=== PATIENT | female | born 1935 | race Caucasian/White ===

== ENCOUNTER 2019-04-22 15:44 | Emergency (ER) | payer MEDICARE, OTHER ==
[~2019-04-22] VITALS: Ht 142 cm; Wt 82.0 kg
[~2019-04-22 15:44] MED LIST: ACHYD1T PO; CA C1TAB75 PO; CTLP20T PO; CYCL10TA9 PO; HYDR-3583 PO; MULT-974 PO; OMEP-10 PO; PAIN MEDICINE; SIMV40TA4 PO; SIMV80TA3 PO; TRAM50TA2 PO
--- NOTE | 2019-04-22 16:27 | NUR ---
EFRAIN STATES HE TOOK PT'S EARRINGS OUT AND PUT THEM INTO A CONTAINER AND GAVE THEM TO HER DAUGHTER.
--- NOTE | 2019-04-22 16:53 | Diagnostic Imaging Report ---
PROCEDURE: CT head and CT cervical spine without contrast. TECHNIQUE: Multiple contiguous axial images were obtained through the brain and cervical spine without the use of intravenous contrast. Sagittal and coronal reformations through the cervical spine were then performed. Auto Exposure Controls were utilized during the CT exam to meet ALARA standards for radiation dose reduction. INDICATION: Fall with frontal scalp hematoma. COMPARISON: No prior studies are available for comparison. CT HEAD: There is soft tissue swelling in the frontal scalp. The ventricles and sulci are appropriate for the patient's age. No sulcal effacement or midline shift is identified. No acute intra-axial or extra-axial hemorrhage is detected. Cisterns are patent. Visualized paranasal sinuses are clear. No calvarial fracture is seen. IMPRESSION: Frontal scalp hematoma. No acute intracranial process is detected. CT CERVICAL SPINE: Curvature of the cervical spine is normal. Minimal anterolisthesis of C3 on C4 and C4 on C5 is noted. There is minimal retrolisthesis of C5 on C6. There is significant degenerative disc disease at the C5-6 and C6-7 levels with disc space narrowing and marginal spurring. Multilevel facet arthropathy is noted, particularly on the left side. No fractures are identified. Prevertebral tissues are within normal limits. Odontoid is intact. IMPRESSION: Cervical spondylosis. No acute bony abnormality is detected. Dictated by: Dictated on workstation # [id number]
--- NOTE | 2019-04-22 16:57 | ED Trauma-Multisystem ---
General Chief Complaint: Trauma-Non Activation Stated Complaint: FALL Nursing Triage Note: TO TRIAGE VIA WC. FAMILY AND PT STATES SHE TRIPPED AND FELL FALLING FACE FORWARD ONTO THE GROUND. DENIES LOC OR NECK PAIN. DENIES BEING ON BLOOD THINNERS. Source of Information: Patient Exam Limitations: No Limitations History of Present Illness Date Seen by Provider: Apr 22, 2019 Time Seen by Provider: 16:00 Allergies and Home Medications Allergies Coded Allergies: No Known Drug Allergies (Unverified , 04/30/13) Home Medications Ca Carbonate/Vitamin D3/Vit K 1 Each Tab.chew, 1 TAB PO DAILY, (Reported) Citalopram Hydrobromide 20 Mg Tablet, 20 MG PO DAILY, (Reported) Cyclobenzaprine Hcl 10 Mg Tablet, 10 MG PO Q8HR PRN, (Reported) Hydrocodone Bit/Acetaminophen 1 Ea Tab, 1-2 TAB PO Q4H PRN, (Reported) Multivitamin 1 Each Tablet, 1 TAB PO DAILY, (Reported) Omeprazole 20 Mg Capsule.dr, 20 MG PO DAILY, (Reported) Simvastatin 80 Mg Tablet, 80 MG PO HS, (Reported) Tramadol Hcl 50 Mg Tablet, 50-100 MG PO Q6H PRN, (Reported) TAKES 1 OR 2 (50MG) TABLETS NEEDED FOR PAIN Past Nznxhhl-Jtiyjj-Vnmqpx Hx Patient Social History Alcohol Use: Denies Use Recreational Drug Use: No Smoking Status: Current Everyday Smoker Recent Foreign Travel: No Contact w/Someone Who Travel: No Recent Infectious Disease Expo: No Immunizations Up To Date Tetanus Booster (TDap): More than 5yrs PED Vaccines UTD: Yes Date of Influenza Vaccine: May 13, 2013 Past Medical History Surgeries: No Respiratory: No Cardiac: Yes Neurological: No Reproductive Disorders: No Gastrointestinal: No Musculoskeletal: Yes Degenerate Disk Disease, Arthritis Endocrine: No Cancer: No Psychosocial: Yes Anxiety Integumentary: Yes Physical Exam Vital Signs Vital Signs - First Documented 04/22/19 15:45 Temp 36.1 Pulse 82 Resp 16 B/P (MAP) 131/71 (91) Pulse Ox 93 O2 Delivery Room Air Height, Weight, BMI Height: '" Weight: 159lbs. 0.0oz. 72.661912vv; 40.00 BMI Method: Progress/Results/Core Measures Results/Orders My Orders Orders - EFRAIN MEHTA Ct Head/Cervical Spine Wo (04/22/19 16:07) Acetaminophen Tablet (Tylenol Tablet) (04/22/19 17:00) Vital Signs/I&O 04/22/19 15:45 Temp 36.1 Pulse 82 Resp 16 B/P (MAP) 131/71 (91) Pulse Ox 93 O2 Delivery Room Air Blood Pressure Mean: 91 Diagnostic Imaging Diagonstic Imaging: CT Plain Films/CT/US/NM/MRI: c-spine, head Comments NAME: HELIO RUSSO [facility] REC#: [id number] PT STATUS: REG ER : 1935 PHYSICIAN: EFRAIN MEHTA ADMIT DATE: 04/22/19/ER Draft Date of Exam:04/22/19 CT HEAD/CERVICAL SPINE WO PROCEDURE: CT head and CT cervical spine without contrast. TECHNIQUE: Multiple contiguous axial images were obtained through the brain and cervical spine without the use of intravenous contrast. Sagittal and coronal reformations through the cervical spine were then performed. Auto Exposure Controls were utilized during the CT exam to meet ALARA standards for radiation dose reduction. INDICATION: Fall with frontal scalp hematoma. COMPARISON: No prior studies are available for comparison. CT HEAD: There is soft tissue swelling in the frontal scalp. The ventricles and sulci are appropriate for the patient's age. No sulcal effacement or midline shift is identified. No acute intra-axial or extra-axial hemorrhage is detected. Cisterns are patent. Visualized paranasal sinuses are clear. No calvarial fracture is seen. IMPRESSION: Frontal scalp hematoma. No acute intracranial process is detected. CT CERVICAL SPINE: Curvature of the cervical spine is normal. Minimal anterolisthesis of C3 on C4 and C4 on C5 is noted. There is minimal retrolisthesis of C5 on C6. There is significant degenerative disc disease at the C5-6 and C6-7 levels with disc space narrowing and marginal spurring. Multilevel facet arthropathy is noted, particularly on the left side. No fractures are identified. Prevertebral tissues are within normal limits. Odontoid is intact. IMPRESSION: Cervical spondylosis. No acute bony abnormality is detected. Dictated on workstation # [id number] Dict: 04/22/19 1649 Trans: 04/22/19 1656 [facility] [id number] Interpreted by: DARSHAN LUDWIG MD Electronically signed by: Reviewed: Reviewed by Me Departure Impression Primary Impression: Minor head injury Additional Impression: Laceration Disposition: 01 HOME, SELF-CARE Condition: Stable/Unchanged Departure-Patient Inst. Decision time for Depature: 17:07 Referrals: SELFKITTY MD (PCP/Family) Primary Care Physician Patient Instructions: Minor Head Injury, Laceration Repair With Glue (DC) Add. Discharge Instructions: Watch for signs of infection such as increased redness, swelling, drainage, pain. You may use Tylenol as directed by the bottle for pain relief. Return back to the emergency room for worsening symptoms, change in level of consciousness, or any other concerns as needed. Follow-up with primary care as needed. All discharge instructions reviewed with patient and/or family. Voiced understanding. EFRAIN MEHTA Apr 22, 2019 16:56
[2019-04-22] MEDS ORDERED: ACETAMINOPHEN 500 MG TAB (TYLENOL) PO PRN (17:00)
[2019-04-22 17:14] VITALS: BP 148/70
== END 2019-04-22 17:14 | disposition home or self-care (01) ==
LOC: EDUNIT# 15:44 → ER 15:45
DX: S09.90XA Unspecified injury of head, initial encounter (principal); S01.91XA Laceration without foreign body of unspecified part of head, initial encounter; F17.200 Nicotine dependence, unspecified, uncomplicated; F41.9 Anxiety disorder, unspecified; W01.198A Fall on same level from slipping, tripping and stumbling with subsequent striking against other object, initial encounter
CPT/HCPCS: 12011; 70450; 72125

== ENCOUNTER 2022-03-31 08:30 | Emergency (ER) | payer MEDICARE, OTHER ==
[~2022-03-31] VITALS: Ht 152.4 cm; Wt 68.0 kg
--- NOTE | 2022-03-31 08:55 | ED Fall/Injury ---
General Chief Complaint: Trauma-Non Activation Stated Complaint: FALL; HEAD LAC Source: patient Exam Limitations: no limitations History of Present Illness Date Seen by Provider: Mar 31, 2022 Time Seen by Provider: 08:34 Initial Comments 87-year-old female with past medical history of hypertension, hyperlipidemia, and stage IV endometrial cancer coming in after she tripped and fell around 530 this morning hitting her head on the nightstand. She endorses having a couple lacerations on her forehead. Did not pass out remembers all events. Is having a moderate, constant, throbbing headache which was better with the hydrocodone she took earlier today. Otherwise denies any neck pain, back pain, extremity pain, chest pain, shortness of breath, abdominal pain, vomiting, diarrhea, weakness, numbness, or any other concerns. Last tetanus shot was 3 years ago. Allergies and Home Medications Allergies Coded Allergies: No Known Drug Allergies (Unverified , 04/30/13) Patient Home Medication List Home Medication List Reviewed: Yes Ca Carbonate/Vitamin D3/Vit K (Calcium + D Soft Chewable Tab) 1 Each Tab.chew, 1 TAB PO DAILY, (Reported) Entered as Reported by: JANIS GELLER on 04/30/13 1050 Citalopram Hydrobromide (Celexa) 20 Mg Tablet, 20 MG PO DAILY, (Reported) Entered as Reported by: WALTER KATHLEEN on 05/12/13 0656 Cyclobenzaprine Hcl (Cyclobenzaprine Hcl) 10 Mg Tablet, 10 MG PO Q8HR PRN, (Reported) Entered as Reported by: BRENDA JOVEL on 05/13/13 0434 Hydrocodone Bit/Acetaminophen (Lortab 10 Mg) 1 Ea Tab, 1-2 TAB PO Q4H PRN, (Reported) Entered as Reported by: BRENDA JOVEL on 05/13/13 0434 Multivitamin (Multi Vitamin Daily) 1 Each Tablet, 1 TAB PO DAILY, (Reported) Entered as Reported by: JANIS GELLER on 04/30/13 1050 Omeprazole (Prilosec 20 Mg) 20 Mg Capsule.dr, 20 MG PO DAILY, (Reported) Entered as Reported by: ABY ELDER on 05/12/13 1118 Simvastatin (Simvastatin) 80 Mg Tablet, 80 MG PO HS, (Reported) Entered as Reported by: ABY ELDER on 05/12/13 1119 Tramadol Hcl (Tramadol Hcl) 50 Mg Tablet, 50-100 MG PO Q6H PRN, (Reported) Entered as Reported by: ABY ELDER on 05/12/13 1119 Review of Systems Review of Systems Constitutional: No fever Eyes: Denies Blurred Vision Ears, Nose, Mouth, Throat: no symptoms reported Respiratory: no symptoms reported Cardiovascular: no symptoms reported Gastrointestinal: no symptoms reported Genitourinary: no symptoms reported Musculoskeletal: no symptoms reported Skin: see HPI Psychiatric/Neurological: No Symptoms Reported All Other Systems Reviewed Negative Unless Noted: Yes Past Vszrtep-Uzcajj-Mozjyo Hx Immunizations Up To Date Tetanus Booster (TDap): More than 5yrs PED Vaccines UTD: Yes Past Medical History Surgeries: No Respiratory: No Cardiac: Yes Neurological: No Reproductive Disorders: No Gastrointestinal: No Musculoskeletal: Yes Degenerate Disk Disease, Arthritis Endocrine: No Cancer: No Psychosocial: Yes Anxiety Integumentary: Yes Physical Exam Vital Signs Vital Signs - First Documented 03/31/22 08:40 Temp 36.8 Pulse 88 Resp 18 B/P (MAP) 145/69 (94) Pulse Ox 97 O2 Delivery Room Air Capillary Refill : Height, Weight, BMI Height: '" Weight: 159lbs. 0.0oz. 72.559298cu; 40.00 BMI Method: General Appearance: WD/WN, no apparent distress HEENT: PERRL/EOMI, normal ENT inspection, pharynx normal, other (2 cm lacera tion to the left middle forehead and 2 and half centimeter laceration to the right mid forehead along the hairline) Neck: non-tender, full range of motion, supple, normal inspection Cardiovascular: normal peripheral pulses, regular rate, rhythm, no edema, no murmur Respiratory: chest non-tender, lungs clear, normal breath sounds, no respiratory distress, no accessory muscle use Gastrointestinal: normal bowel sounds, non tender, soft; No distended, No guarding, No rebound Extremities: normal range of motion, non-tender, normal inspection, no pedal edema, no calf tenderness, normal capillary refill 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, no motor/sensory deficits, alert, normal mood/affect, oriented x 3 Skin: normal color, warm/dry Lymphatic: no adenopathy Bren Coma Score Best Eye Response: (4) Open Spontaneously Best Verbal Response: (5) Oriented Best Motor Response: (6) Obeys Commands Procedures/Interventions Wound Location: Face Other Wound Location forehead lac #1 left forehead that was 2cm with 5 stitches that were 5-0 fast absorbing gut lac #2 on right forehead along hairline that was 2.5cm with 6 stitches that were 6-0 prolene Wound's Depth, Shape: sub Q Wound Explored: clean Irrigated w/ Saline (ccs): 500 Betadine Prep?: No Anesthesia: Lidocaine w/ Epi Volume Anesthetic (ccs): 6 Progress Patient tolerated well Progress/Results/Core Measures Results/Orders My Orders Orders - RAI RAMÍREZ MD Hydrocodone/Apap 5/325 Tablet (Lortab 5 (03/31/22 09:00) Ct Head/Cervical Spine Wo (03/31/22 08:51) Lidocaine/Epi 2% 1:100,000 (Xylocaine/Ep (03/31/22 09:00) Ondansetron Oral Dissolve Tab (Zofran (03/31/22 09:10) Lidocaine/Epi Mpf 2% 1:200,000 (Xylocain (03/31/22 09:18) Medications Given in ED Current Medications Medications Dose Ordered Sig/Garry Route Start Time Stop Time Status Last Admin Dose Admin Acetaminophen/ Hydrocodone Bitart 1 ea ONCE ONCE PO 03/31/22 09:00 03/31/22 09:01 DC 03/31/22 09:03 1 EA Vital Signs/I&O 03/31/22 08:40 Temp 36.8 Pulse 88 Resp 18 B/P (MAP) 145/69 (94) Pulse Ox 97 O2 Delivery Room Air Progress Progress Note : Progress Note 87-year-old female with above history coming in after mechanical fall tripping several hours before arrival. ABCs were intact and vitals were stable on presentation. Physical exam with 2 lacerations to her forehead. Tetanus is up-to-date. She was given hydrocodone for pain. CT head and cervical spine negative for acute abnormalities. She has no tenderness anywhere else and no other imaging obtained. The wounds were closed after being cleaned. The patient should come back in roughly 10 days for the laceration on the right side of her forehead. The left side of her forehead is absorbable stitches. Diagnostic Imaging Diagonstic Imaging: CT (head and cspine) Comments [facility] [place] NAME: HELIO RUSSO [facility] REC#: [id number] PT STATUS: REG ER : 1935 PHYSICIAN: RAI RAMÍREZ MD ADMIT DATE: 03/31/22/ER FS Draft Date of Exam:03/31/22 CT HEAD/CERVICAL SPINE WO PROCEDURE: CT head and CT cervical spine without contrast. TECHNIQUE: Multiple contiguous axial images were obtained through the brain and cervical spine without the use of intravenous contrast. Sagittal and coronal reformations through the cervical spine were then performed. Auto Exposure Controls were utilized during the CT exam to meet ALARA standards for radiation dose reduction. INDICATION: Fall, scalp lacerations. Head: There is no intracranial hemorrhage, hydrocephalus, cerebral edema, mass, mass effect nor evidence for an elevation of the intracranial pressures. Head CT unchanged from exam 04/22/2019. No findings of elevated intracranial pressures. No focal or generalized cerebral edema. No calvarial fracture deformity. No pneumocephalus. No hemo-sinus. Scleral banding noted chronic. No acute or suspect orbital pathology. The intracranial atherosclerotic vascular calcifications chronic. There is some left frontal supraorbital scalp irregularities. Cervical spine: Chronic degenerative changes greatest at C5-C6 redemonstrated unchanged from comparison. There is stable grade 1 degenerative anterolisthesis C3 on C4 and C4 on C5 unchanged. No cervical fracture. No facet joint dislocation. No paraspinal hemorrhage. No prevertebral thickening. Craniocervical relationship and central skull base intact. IMPRESSION: CT head: Stable chronic senescent changes as well as left frontal scalp injury but no fracture or intracerebral hemorrhage. CT cervical spine shows chronic degenerative changes and multilevel grade 1 degenerative listheses unchanged from prior with no fracture or dislocation. Dictated on workstation # [id number] Dict: 03/31/22918 Trans: 03/31/22928 [id number] Interpreted by: KAELA CIFUENTES Electronically signed by: Departure Impression Primary Impression: Forehead laceration Qualified Codes: S01.81XA - Laceration without foreign body of other part of head, initial encounter Additional Impression: Fall Qualified Codes: W19.XXXA - Unspecified fall, initial encounter Disposition: 01 HOME, SELF-CARE Condition: Stable Departure-Patient Inst. Decision time for Depature: 09:55 Referrals: SELF,KITTY ELLIOTT (PCP) Primary Care Physician Patient Instructions: Laceration Repair With Stitches ED Add. Discharge Instructions: The stitches on your right side of your forehead need to come out in 10 days, you can come back to the ER for that. The left-sided forehead will absorb by themselves. After couple days you can allow them to get briefly wet, but pat them dry. Do not scrub them, or allow them to be submerged in any type of water. You do not need to place any ointments on them until the stitches are out. If you have any redness spreading down your face, pus coming out of the wound, or new fever then I would want you evaluated by your doctor or come back to the ER. RAI RAMÍREZ MD Mar 31, 2022 08:55
[2022-03-31] MEDS ORDERED: LIDOCAINE/EPI 2% 1:100,00 (XYLOCAINE) 20 ML VIAL INJ ONE (09:00)
[2022-03-31] MEDS ORDERED: HYDROcodone/APAP 5 MG/325 MG (LORTAB) TAB PO ONE (09:00)
[2022-03-31] MEDS ORDERED: ONDANSETRON 4 MG (ZOFRAN) ORAL DISSOLVE TAB PO STA (09:10)
[2022-03-31] MEDS ORDERED: LIDOCAINE/EPI 2% 1:200,00 (XYLOCAINE) 20 ML VIAL ONE (09:18)
--- NOTE | 2022-03-31 09:29 | Diagnostic Imaging Report ---
PROCEDURE: CT head and CT cervical spine without contrast. TECHNIQUE: Multiple contiguous axial images were obtained through the brain and cervical spine without the use of intravenous contrast. Sagittal and coronal reformations through the cervical spine were then performed. Auto Exposure Controls were utilized during the CT exam to meet ALARA standards for radiation dose reduction. INDICATION: Fall, scalp lacerations. Head: There is no intracranial hemorrhage, hydrocephalus, cerebral edema, mass, mass effect nor evidence for an elevation of the intracranial pressures. Head CT unchanged from exam 04/22/2019. No findings of elevated intracranial pressures. No focal or generalized cerebral edema. No calvarial fracture deformity. No pneumocephalus. No hemo-sinus. Scleral banding noted chronic. No acute or suspect orbital pathology. The intracranial atherosclerotic vascular calcifications chronic. There is some left frontal supraorbital scalp irregularities. Cervical spine: Chronic degenerative changes greatest at C5-C6 redemonstrated unchanged from comparison. There is stable grade 1 degenerative anterolisthesis C3 on C4 and C4 on C5 unchanged. No cervical fracture. No facet joint dislocation. No paraspinal hemorrhage. No prevertebral thickening. Craniocervical relationship and central skull base intact. IMPRESSION: CT head: Stable chronic senescent changes as well as left frontal scalp injury but no fracture or intracerebral hemorrhage. CT cervical spine shows chronic degenerative changes and multilevel grade 1 degenerative listheses unchanged from prior with no fracture or dislocation. Dictated by: Dictated on workstation # [id number]
[2022-03-31 10:20] VITALS: BP 125/83
== END 2022-03-31 10:20 | disposition home or self-care (01) ==
LOC: EDUNIT# 08:30 → ER FS 08:31
DX: S01.81XA Laceration without foreign body of other part of head, initial encounter (principal); W01.198A Fall on same level from slipping, tripping and stumbling with subsequent striking against other object, initial encounter
CPT/HCPCS: 12013; 70450; 72125

== ENCOUNTER 2022-04-10 11:51 | Emergency (ER) | payer MEDICARE, OTHER | END 2022-04-10 12:05 | disposition left against medical advice (07) | LOC: EDUNIT# 11:51 → ER FS 11:52 | DX: Z48.02 Encounter for removal of sutures (principal) ==

== ENCOUNTER 2022-07-17 13:42 | Emergency (ER) | payer MEDICARE, OTHER ==
[2022-07-17] MEDS ORDERED: ONDANSETRON 4 MG (ZOFRAN) ORAL DISSOLVE TAB PO STA (14:24)
--- NOTE | 2022-07-17 14:42 | ED General ---
General Chief Complaint: General Problems/Pain Stated Complaint: GEN WEAKNESS; N/V Nursing Triage Note: Patient presents to the ED with c/o generalized weakness, nausea, and vomiting. Family report patient has been getting progressively weak for the past 3 days. Reports 1 episode of nausea and vomiting this morning. Source of Information: Patient Exam Limitations: No Limitations History of Present Illness Date Seen by Provider: Jul 17, 2022 Time Seen by Provider: 13:45 Initial Comments Patient is an 87-year-old female with stage IV endometrial cancer presents with generalized weakness with nausea and vomiting today with recent diagnosis of lower urinary tract infection. Patient was evaluated by her PCP 4 days ago and had blood work and a UA performed. She was prescribed nitrofurantoin today but family has not had a chance to fill prescription. Patient vomited once prior to ED arrival did not take her morning medications. No other symptoms or complaints. Historian is the patient and patient's family members. Timing/Duration: 2-3 Days Severity: Mild Modifying Factors: improves with Other Associated Systoms: Other Allergies and Home Medications Allergies Coded Allergies: No Known Drug Allergies (Unverified , 04/30/13) Patient Home Medication List Home Medication List Reviewed: Yes Ca Carbonate/Vitamin D3/Vit K (Calcium + D Soft Chewable Tab) 1 Each Tab.chew, 1 TAB PO DAILY, (Reported) Entered as Reported by: JANIS GELLER on 04/30/13 1050 Citalopram Hydrobromide (Celexa) 20 Mg Tablet, 20 MG PO DAILY, (Reported) Entered as Reported by: WALTER KATHLEEN on 05/12/13 0656 Cyclobenzaprine Hcl (Cyclobenzaprine Hcl) 10 Mg Tablet, 10 MG PO Q8HR PRN, (Reported) Entered as Reported by: BRENDA JOVEL on 05/13/13 0434 Hydrocodone Bit/Acetaminophen (Lortab 10 Mg) 1 Ea Tab, 1-2 TAB PO Q4H PRN, (Reported) Entered as Reported by: BRENDA JOVEL on 05/13/13 0434 Multivitamin (Multi Vitamin Daily) 1 Each Tablet, 1 TAB PO DAILY, (Reported) Entered as Reported by: JANIS GELLER on 04/30/13 1050 Omeprazole (Prilosec 20 Mg) 20 Mg Capsule.dr, 20 MG PO DAILY, (Reported) Entered as Reported by: ABY ELDER on 05/12/13 1118 Simvastatin (Simvastatin) 80 Mg Tablet, 80 MG PO HS, (Reported) Entered as Reported by: ABY ELDER on 05/12/13 1119 Tramadol Hcl (Tramadol Hcl) 50 Mg Tablet, 50-100 MG PO Q6H PRN, (Reported) Entered as Reported by: ABY ELDER on 05/12/13 1119 Review of Systems Review of Systems Constitutional: see HPI EENTM: see HPI Respiratory: see HPI Cardiovascular: see HPI Gastrointestinal: see HPI Genitourinary: see HPI : No Musculoskeletal: see HPI Skin: see HPI Psychiatric/Neurological: See HPI Hematologic/Lymphatic: See HPI All Other Systems Reviewed Negative Unless Noted: No Past Xfumsns-Acvcyj-Lotccj Hx Patient Social History Tobacco Use?: Yes Tobacco type used: Cigarettes Smoking Status: Current Everyday Smoker Substance use?: No Alcohol Use?: No Pt feels they are or have been: No Immunizations Up To Date Tetanus Booster (TDap): More than 5yrs PED Vaccines UTD: Yes Past Medical History Surgery/Hospitalization HX: stage iv endometrial cancer; Chronic back pain Surgeries: No Respiratory: No Cardiac: Yes Neurological: No Reproductive Disorders: No Gastrointestinal: No Musculoskeletal: Yes Degenerate Disk Disease, Arthritis Endocrine: No Cancer: No Psychosocial: Yes Anxiety Integumentary: Yes Physical Exam Vital Signs Vital Signs - First Documented 07/17/22 13:53 Temp 36.5 Pulse 65 Resp 20 B/P (MAP) 180/86 (117) Pulse Ox 96 O2 Delivery Room Air Capillary Refill : Less Than 3 Seconds Height, Weight, BMI Height: '" Weight: 159lbs. 0.0oz. 72.725180th; 29.00 BMI Method: General Appearance: No Apparent Distress, WD/WN Eyes: Bilateral Eye Normal Inspection, Bilateral Eye PERRL, Bilateral Eye EOMI HEENT: PERRL/EOMI, Normal ENT Inspection, Pharynx Normal Neck: Full Range of Motion, Normal Inspection, Non Tender Respiratory: Lungs Clear Cardiovascular: Regular Rate, Rhythm, No Edema, No JVD, No Murmur Gastrointestinal: No Pulsatile Mass, Soft Back: Normal Inspection Neurologic/Psychiatric: Alert, Oriented x3 Focused Exam Sepsis Stage: Ruled Out Progress/Results/Core Measures Suspected Sepsis SIRS Temperature: Pulse: 65 Respiratory Rate: 20 Laboratory Tests 12/12/22 15:11: White Blood Count 7.6 Blood Pressure 180 /86 Mean: 117 Laboratory Tests 07/17/22 15:11: Creatinine 1.28, Platelet Count 309, Total Bilirubin 0.7 Results/Orders Lab Results Laboratory Tests Test 07/17/22 15:11 07/17/22 15:22 07/17/22 16:14 Range/Units White Blood Count 7.6 4.3-11.0 10^3/uL Red Blood Count 4.75 3.80-5.11 10^6/uL Hemoglobin 12.1 11.5-16.0 g/dL Hematocrit 38 35-52 % Mean Corpuscular Volume 81 80-99 fL Mean Corpuscular Hemoglobin 26 25-34 pg Mean Corpuscular Hemoglobin Concent 32 32-36 g/dL Red Cell Distribution Width 18.2 H 10.0-14.5 % Platelet Count 309 130-400 10^3/uL Mean Platelet Volume 10.9 9.0-12.2 fL Neutrophils (%) (Auto) 80 H 42-75 % Lymphocytes (%) (Auto) 13 12-44 % Monocytes (%) (Auto) 6 0-12 % Eosinophils (%) (Auto) 1 0-10 % Basophils (%) (Auto) 0 0-10 % Neutrophils # (Auto) 6.1 1.8-7.8 X 10^3 Lymphocytes # (Auto) 1.0 1.0-4.0 X 10^3 Monocytes # (Auto) 0.4 0.0-1.0 X 10^3 Eosinophils # (Auto) 0.1 0.0-0.3 10^3/uL Basophils # (Auto) 0.0 0.0-0.1 10^3/uL Sodium Level 139 135-145 MMOL/L Potassium Level 3.9 3.6-5.0 MMOL/L Chloride Level 102 98-107 MMOL/L Carbon Dioxide Level 25 21-32 MMOL/L Anion Gap 12 5-14 MMOL/L Blood Urea Nitrogen 14 7-18 MG/DL Creatinine 1.28 0.60-1.30 MG/DL Estimat Glomerular Filtration Rate 41 BUN/Creatinine Ratio 11 Glucose Level 101 70-105 MG/DL Calcium Level 9.9 8.5-10.1 MG/DL Corrected Calcium 9.8 8.5-10.1 MG/DL Total Bilirubin 0.7 0.1-1.0 MG/DL Aspartate Amino Transf (AST/SGOT) 17 5-34 U/L Alanine Aminotransferase (ALT/SGPT) 10 0-55 U/L Alkaline Phosphatase 101 40-136 U/L Troponin I < 0.30 <0.30 NG/ML Total Protein 7.6 6.4-8.2 GM/DL Albumin 4.1 3.2-4.5 GM/DL Influenza Type A (RT-PCR) Not Detected Not Detecte Influenza Type B (RT-PCR) Not Detected Not Detecte SARS-CoV-2 RNA (RT-PCR) Not Detected Not Detecte My Orders Orders - JUSTIN JAVED DO Ondansetron Oral Dissolve Tab (Zofran (07/17/22 14:24) Orthostatic Vital Signs (Adult (07/17/22 14:43) Hydrocodone/Apap 5/325 Tablet (Lortab 5 (07/17/22 15:15) Cbc With Automated Diff (07/17/22 15:09) Comprehensive Metabolic Panel (07/17/22 15:09) Troponin I Fs (07/17/22 15:09) Ua Culture If Indicated (07/17/22 15:09) Ns Iv 1000 Ml (Sodium Chloride 0.9%) (07/17/22 15:15) Ceftriaxone 1 Gm Pre-Mix (Rocephin 1 Gm (07/17/22 15:15) Covid 19 Inhouse Test (07/17/22 15:10) Influenza A And B By Pcr (07/17/22 15:10) Isolation Central Supply Req (07/17/22 15:10) Medications Given in ED Current Medications Medications Dose Ordered Sig/Garry Route Start Time Stop Time Status Last Admin Dose Admin Acetaminophen/ Hydrocodone Bitart 1 ea ONCE ONCE PO 07/17/22 15:15 07/17/22 15:16 DC 07/17/22 15:10 1 EA Ceftriaxone Sodium/Dextrose 50 ml @ 100 mls/hr ONCE ONCE IV 07/17/22 15:15 07/17/22 15:44 DC 07/17/22 15:22 100 MLS/HR Vital Signs/I&O 07/17/22 07/17/22 13:53 15:19 Temp 36.5 Pulse 65 103 92 83 Resp 20 B/P (MAP) 180/86 (117) 174/73 (106) 169/95 (119) 136/71 (92) Pulse Ox 96 O2 Delivery Room Air Capillary Refill : Less Than 3 Seconds Blood Pressure Mean: 117 Departure Communication (Admissions) Patient with generalized weakness with recent falls. She denies headache, neck pain, blurred vision, chest pain palpitations, shortness of breath. Patient does report nausea with eating. She reports intermittent low back pain, currently denies abdominal pain, low flank pain. No fever chills or sweats. No other acute symptoms or complaints. Orthostatic positive. IV fluids, IV antibiotics given. Patient remains a high fall risk while on anticoagulation therapy I discussed this in detail with the patient's family including recommendation for alf placement and/or hospital admission. Family members voiced understanding of risk of fall and injury but preferred to take patient home in keeping with her wishes. Home safety precautions discussed. Return precautions reviewed. Patient's family verbalizes understanding agreement discharge instructions prior to departure. Impression Primary Impression: Generalized weakness Additional Impressions: Nausea and vomiting Urinary tract infection Disposition: 01 HOME, SELF-CARE Condition: Improved Departure-Patient Inst. Decision time for Depature: 16:27 Referrals: KITTY DIANE MD (PCP) Primary Care Physician Patient Instructions: Urinary Tract Infection, Adult (DC), Generalized Weakness, Nausea and Vomiting, Adult Add. Discharge Instructions: Diya was evaluated in the emergency department with generalized weakness nausea and vomiting and frequent falls. The exact cause of your symptoms has not been determined. Please increase fluids, take nausea medication as directed and encourage caloric intake. Continue walker use with assist and follow-up with her PCP for further management. Return to the ED if new or concerning symptoms. All discharge instructions reviewed with patient and/or family. Voiced understanding. Scripts Ondansetron (Ondansetron Odt) 4 Mg Tab.rapdis 4 MG SL Q4H PRN for NAUSEA/VOMITING, #10 TAB Prov: JUSTIN JAVED DO 07/17/22 JSUTIN JVAED DO Jul 17, 2022 14:42
[2022-07-17] MEDS ORDERED: cefTRIAXone 1 GM PRE-MIX 50 ML IV ONE (15:15)
[2022-07-17] MEDS ORDERED: HYDROcodone/APAP 5 MG/325 MG (LORTAB) TAB PO ONE (15:15)
[2022-07-17] MEDS ORDERED: NS IV 1000 ML 1,000 ML IV SCH (15:15)
[2022-07-17 15:19] VITALS: BP_SYST 136; BP_SYST 169; BP_SYST 174; BP_DIAS 71; BP_DIAS 73; BP_DIAS 95
[2022-07-17 15:38] LABS: HEMOGLOBIN 12.1 g/dL (11.5-16.0); WHITE BLOOD COUNT 7.6 10^3/uL (4.3-11.0)
[2022-07-17 15:39] LABS: BASOPHILS % (AUTO) 0 % (0-10); EOSINOPHILS % (AUTO) 1 % (0-10); HEMATOCRIT 38 % (35-52); LYMPHOCYTES % (AUTO) 13 % (12-44); MEAN CORPUSCULAR HEMOGLOBIN 26 pg (25-34); MEAN CORPUSCULAR HGB CONC 32 g/dL (32-36); MEAN CORPUSCULAR VOLUME 81 fL (80-99); MEAN PLATELET VOLUME 10.9 fL (9.0-12.2); MONOCYTES % (AUTO) 6 % (0-12); NEUTROPHILS % (AUTO) 80 % (42-75); PLATELET COUNT 309 10^3/uL (130-400)
[2022-07-17 15:40] LABS: EOSINOPHILS # (AUTO) 0.1 10^3/uL (0.0-0.3); MONOCYTES # (AUTO) 0.4 X 10^3 (0.0-1.0); NEUTROPHILS # (AUTO) 6.1 X 10^3 (1.8-7.8)
[2022-07-17 15:46] LABS: ALANINE AMINOTRANSFERASE 10 U/L (0-55); ALKALINE PHOSPHATASE 101 U/L (40-136); BILIRUBIN,TOTAL 0.7 MG/DL (0.1-1.0); BUN/CREATININE RATIO 11; CALCIUM 9.9 MG/DL (8.5-10.1); CARBON DIOXIDE 25 MMOL/L (21-32); CHLORIDE 102 MMOL/L (98-107); CREATININE SERUM 1.28 MG/DL (0.60-1.30); GFR ESTIMATED 41; GLUCOSE 101 MG/DL (70-105); POTASSIUM 3.9 MMOL/L (3.6-5.0); SODIUM 139 MMOL/L (135-145); TOTAL PROTEIN 7.6 GM/DL (6.4-8.2)
[2022-07-17 15:47] LABS: ALBUMIN 4.1 GM/DL (3.2-4.5)
[2022-07-17 16:18] LABS: BILIRUBIN,URINE NEGATIVE (NEGATIVE); CLARITY,URINE SL CLOUDY; COLOR,URINE YELLOW; GLUCOSE, URINE (UA) NEGATIVE (NEGATIVE); KETONES,URINE 1+ (NEGATIVE); LEUKOCYTE ESTERASE ,URINE TRACE (NEGATIVE); NITRITE,URINE NEGATIVE (NEGATIVE); PH,URINE 5.5 (5-9); PROTEIN,URINE 1+ (NEGATIVE)
[2022-07-17] MEDS ORDERED: ONDA4TAB11 SL (16:27)
[2022-07-17 16:28] LABS: BACTERIA,URINE FEW /HPF
[2022-07-17 16:33] VITALS: BP 165/89
== END 2022-07-17 16:32 | disposition home or self-care (01) ==
LOC: EDUNIT# 13:42 → ER FS 13:44
DX: N39.0 Urinary tract infection, site not specified (principal); R53.1 Weakness; M54.50 Low back pain, unspecified; F17.210 Nicotine dependence, cigarettes, uncomplicated; Z20.822 Contact with and (suspected) exposure to COVID-19
CPT/HCPCS: 36415; 80053; 81000; 84484; 85025; 87088; 87636